=== PATIENT | male | born 1960 | race Caucasian/White ===

== ENCOUNTER 2016-11-20 05:46 | Emergency (ER) | payer OTHER ==
[~2016-11-20] VITALS: Ht 172.7 cm; Wt 122.5 kg
[~2016-11-20 05:46] MED LIST: ASPIRIN EC325 MG PO; IBUPROFEN400 MG PO; LOVASTATIN20 MG PO
[2016-11-20] MEDS ORDERED: LOSARTAN POTASS50 MG PO (05:54)
[2016-11-20] MEDS ORDERED: KEFLEX500 MG PO (06:14)
== END 2016-11-20 06:28 | disposition home or self-care (01) ==
LOC: ED 05:46
DX: N39.0 Urinary tract infection, site not specified (principal); I10 Essential (primary) hypertension; E78.00 Pure hypercholesterolemia, unspecified; Z87.891 Personal history of nicotine dependence; Z79.899 Other long term (current) drug therapy; Z79.82 Long term (current) use of aspirin
CPT/HCPCS: 81001; 87077; 87088; 87186; 99283

== ENCOUNTER 2017-04-25 05:40 | Day surgery (SDC) | payer OTHER ==
[~2017-04-25] VITALS: Ht 172.7 cm; Wt 121.6 kg
[~2017-04-25 05:40] MED LIST changes: +ATORVASTATIN CA40 MG PO; +KEFLEX500 MG PO; +LOSARTAN POTASS50 MG PO
--- NOTE | 2017-04-25 09:23 | NUR ---
04/25/17 0923 Kell Rajput 0920 - PT ARRIVED TO PACU. AWAKE AND RESPONDING APPROPIRALTY TO QUESTIONS.
--- NOTE | 2017-04-25 11:40 | NUR ---
HAS HAD JELLO WATER 300MLS AND PAIN MEDICINE. RATES PAIN AT 1/10. AMB HALLWAY AND VOIDS QS. READY TO GO HOME.
--- NOTE | 2017-04-26 10:44 | OR ---
[facility] [address] [facility] [place], [place] [address] Signed DATE OF OPERATION: 04/25/2017 SURGEON: Jany Villarreal MD PREOPERATIVE DIAGNOSES: 1. Recurrent urinary tract infections. 2. Right hydrocele. NAMES OF PROCEDURES: 1. Diagnostic cystourethroscopy. 2. Right hydrocelectomy. ANESTHESIA: General. ESTIMATED BLOOD LOSS: Minimal. COMPLICATIONS: None. SPECIMENS: Right-sided hydrocele sac, sent to pathology for evaluation. DRAINS: None. INDICATIONS FOR PROCEDURE: Mr. Myers is a very pleasant 56-year-old gentleman, who recently presented to clinic with complaints of progressively worsening right testicular swelling. He notices swelling many years ago, but over time his right testicle has gotten larger and is now getting in the way of basic activities of daily life. He also has a history of recurrent urinary tract infections and on initial visit, he mentioned that he had experienced a significant difficulty voiding after taking Sudafed. He has not experienced urinary tract infection in over 2 to 3 months. His UA today is normal. He presents today to undergo diagnostic cystoscopy for evaluation of his recurrent UTIs, along with definitive management of his right hydrocele in the form of right hydrocelectomy. OPERATIVE FINDINGS: Electronically Signed By: JANY VILLARREAL MD 04/26/17 1044 PATIENT NAME: LOYDA MYERS OPERATIVE REPORT DATE OF : 62 PHYSICIAN: JANY VILLARREAL MD REPORT #: [id number] REPORT IS CONFIDENTIAL AND NOT TO BE RELEASED WITHOUT AUTHORIZATION [facility] [address] [place] [place] [address] Signed 1. On cystoscopy, there was no evidence of any suspicious masses, lesions, or stones. Bilateral ureteral orifices are in their normal anatomic location. 2. Ureteroscopy reveals approximately 1 cm of distance from the bladder neck to the verumontanum. There was no significant lateral lobe hypertrophy noted on ureteroscopy. No obvious evidence of obstruction noted. 3. Examination of the external genitalia reveals a normal circumcised phallus with a small suprapubic fat pad. The testicles are descended bilaterally. The left testicle is normal and is without intratesticular masses. The right testicle is significantly enlarged to about the size of a softball. It is difficult to palpate the testicle on the right side due to the presence of a hydrocele. 4. The right hydrocele sac was drained and excised via the Jaboulay technique without difficulty. DESCRIPTION OF PROCEDURE: After informed consent was obtained, the patient was taken back to the operating room. He was transferred from the [facility] to the operating room table, where general anesthesia was induced. He was placed in the supine position and his genitalia prepped and draped in standard sterile fashion. A flexible cystoscope was passed through the patient's urethra and into the bladder under direct visualization. Plain endoscopic views of the bladder were then obtained. Please see the findings. I then slowly withdrew the scope to obtain adequate visualization of the prostatic urethra. Please see the findings. The scope was then fully withdrawn and that portion of the procedure was terminated. The patient's genitalia were then prepped and redraped in the standard sterile fashion. A marker was used to demarcate the median raphe. An approximately 6 cm transverse incision was made in the right hemiscrotum. I dissected down through the dartos tissue to the level of the tunica vaginalis. I then bluntly dissected the tunica vaginalis free from the dartos fascia. Metzenbaum scissors were used very carefully to help dissect the tunica vaginalis free from the surrounding tissue. I then delivered the entire testicle from the right hemiscrotum and released the gubernacular attachment from the right hemiscrotum. All the while hemostasis was achieved and maintained with judicious use of electrocautery. The hydrocele sac was then incised and approximately 300 mL of fluid was drained from the right hemiscrotum. The right hydrocele sac was then opened and approximately 3/4th of it was excised and placement in a specimen cup and sent to the lab for evaluation. I then wrapped the edges of this hydrocele sac around the spermatic cord in what is noted Jaboulay approach. Once the edges of this hydrocele sac were wrapped around the spermatic cord, I then closed these edges over the cord in a continuous running fashion using 3-0 Vicryl. I evaluated the dartos tissue within the right hemiscrotum and cauterized any areas of active bleeding. The right hemiscrotum was then thoroughly irrigated and the right testicle was placed back into the right hemiscrotum in appropriate orientation. I then reassessed the area for any residual bleeders, which were managed with electrocautery. The dartos tissue was then closed in a continuous running fashion using 3-0 Vicryl. The skin was closed in a Electronically Signed By: JANY VILLARREAL MD 04/26/17 1044 PATIENT NAME: LOYDA MYERS OPERATIVE REPORT DATE OF : 62 PHYSICIAN: JANY VILLARREAL MD REPORT #: [id number] REPORT IS CONFIDENTIAL AND NOT TO BE RELEASED WITHOUT AUTHORIZATION [address] [place], [place] [address] Signed continuous running fashion using 4-0 Vicryl. Once the incision was closed, it was cleaned and bacitracin ointment was applied along with a 4 x 4 and scrotal fluffs. The patient was then placed in a scrotal support. The procedure was then terminated. The patient tolerated the procedure well without any complication. He will now be transferred to the postanesthesia care unit in stable condition. DISPOSITION: I discussed the details of today's procedure with the patient's and answered all of her questions. He will be scheduled to return to clinic in approximately 2 weeks for a postoperative evaluation. He was told to take it easy for at least the next few days and avoid any significant heavy lifting or heavy physical activity. He will be sent home with Percocet 5/325 q.4 hours p.r.n. pain for a total of 30 dispensed along with Keflex 500 mg p.o. b.i.d. for a total of 7 days. He is to avoid aspirin and any other NSAIDs for at least the next 5 days. MD CHRISTINA Cox/BRITTANY /[id number] Electronically Signed By: JANY VILLARREAL MD 04/26/17 1044 PATIENT NAME: LOYDA MYERS OPERATIVE REPORT DATE OF : 62 PHYSICIAN: JANY VILLARREAL MD REPORT #: [id number] REPORT IS CONFIDENTIAL AND NOT TO BE RELEASED WITHOUT AUTHORIZATION
== END 2017-04-25 11:30 | disposition home or self-care (01) ==
LOC: OPS 05:40 → DS 05:40 → OPS 06:45
PROVIDERS: Urology
PROC: 0VB60ZZ Excision of Right Tunica Vaginalis, Open Approach (ICD-10-PCS; principal; 2017-04-25 06:45)
DX: N43.3 Hydrocele, unspecified (principal); N39.0 Urinary tract infection, site not specified; I10 Essential (primary) hypertension; E78.5 Hyperlipidemia, unspecified; Z98.52 Vasectomy status
CPT/HCPCS: 00910; J0330; J0696; J1100; J1885; J2250; J2405; J2704; J3010; J7120

== ENCOUNTER 2021-06-08 06:55 | Day surgery (SDC) | payer OTHER ==
--- NOTE | 2021-06-01 10:48 | NUR ---
pt covid positive in 10/2020. Pt was not test but the health department said he would be positive if he had three or more s/s which he did. Pt was SOB, fever, no engery and lost 20 pounds.
[~2021-06-08] VITALS: Ht 172.7 cm; Wt 127.3 kg
[2021-06-08] MEDS ORDERED: METFORMIN HCL500 M2 PO (07:12)
--- NOTE | 2021-06-08 12:28 | NUR ---
06/08/21 1228 Janelle Lan 1211 PT ARRIVED IN PACU SLEEPY WITH NO C/O'S. NO CBG NEEDED POST OP PER ANESTHESIA. 1227 SITTING UP IN BED TALKING WITH STAFF.
--- NOTE | 2021-06-08 12:59 | NUR ---
1240/PT ARRIVES TO UNIT VIA STRETCHER FROM PACU. PT IS ALERT AND ORIENTED. PT DENIES NAUSEA OR PAIN. VSS. DRESSING CLEAN DRY AND INTACT. SCD'S IN PLACE. PT GIVEN WATER BUT DENIED A SNACK AT THIS TIME. NO NEEDS VOICED AT THIS TIME. CALL LIGHT WITHIN.
--- NOTE | 2021-06-08 13:54 | NUR ---
1354/PT ALERT AND ORIENTED. PT DENIES PAIN OR NASUEA. VSS. SCD'S IN PLACE. DRESSING CLEAN DRY AND INTACT. PT VOICED HE WOULD LIKE TO TRY TO GO TO RESTROOM. PT WAS ASSISTED TO RESTROOM BY THIS STUDENT NURSE AND LENA MCGRATH. IV DC'D BY THIS STUDENT NURSE. TIP IN TACT. PT WILL GET DRESSED AND AWAIT FOR DISCHARGE. CALL LIGHT WITHIN REACH.
--- NOTE | 2021-06-08 14:31 | NUR ---
1420/PT WAS GIVEN DISCHARGE INSTRUCTIONS. PT VOICED UNDERSTANDING. NO NEEDS VOICED BY PT AT THIS TIME. PT WAS WAS TAKEN TO IN PERSONAL VEHICLE VIA WHEELCHAIR.
--- NOTE | 2021-06-08 17:36 | OR ---
[facility] [address] [place], [place] [address] Signed DATE OF OPERATION: 06/08/2021 SURGEON: Jany Villarreal MD PREOPERATIVE DIAGNOSIS: Left hydrocele. POSTOPERATIVE DIAGNOSES: Left hydrocele. NAME OF PROCEDURES: Left hydrocelectomy. ANESTHESIA: General; 10 mL of 0.25% Marcaine plain. ESTIMATED BLOOD LOSS: Minimal. COMPLICATIONS: None. SPECIMENS: Hydrocele sac sent to pathology for evaluation. DRAINS: None. INDICATIONS FOR PROCEDURE: Mr. Myers is a very pleasant 60-year-old gentleman, who is well-known to me. Approximately three years ago, he underwent a successful right hydrocelectomy for a mild to moderately sized right hydrocele. He recently presented to me again in clinic with complaints of a 1-2 year history of progressive enlargement of his left hemiscrotum. Physical examination confirmed the presence of a left hydrocele. After discussion of the risks and benefits of the procedure including risk of hemorrhage and recurrence of the hydrocele, the patient has elected to undergo left hydrocelectomy today. FINDINGS: 1. Visual inspection of the external genitalia reveals a glanular meatus with a circumcised phallus. No lesions present on the penile shaft. Testicles are descended Electronically Signed By: JANY VILLARREAL MD 06/08/21 1736 PATIENT NAME: LOYDA MYERS OPERATIVE REPORT DATE OF : 62 REPORT #: [id number] PHYSICIAN: JANY VILLARREAL MD PCP: TEE RUTHERFORD MD REPORT IS CONFIDENTIAL AND NOT TO BE RELEASED WITHOUT AUTHORIZATION [facility] [address] [place], [place] [address] Signed bilaterally. There is a scar in the right hemiscrotum consistent with his previous hydrocelectomy. There is [id number] swelling of the left hemiscrotum consistent with a hydrocele. 2. The patient's left hydrocele was repaired via excision of the left hydrocele sac and with eversion of the remaining edge of the hydrocele sac on the left side. The procedure was performed without any difficulty, however, it did require some extra dissection time in the beginning due to an exaggerated gubernacular attachment on the left side. Approximately 150 mL of straw-colored fluid was drained from the left hydrocele sac. DESCRIPTION OF PROCEDURE: After informed consent was obtained, the patient was taken back to the operating room. He was transferred from the [facility] to the operating room table, where general anesthesia was induced. He was placed in the supine position and his genitalia were prepped and draped in standard sterile fashion. Visual and manual inspection of the external genitalia was then performed. A marker was then used to guy the median raphae a as well as the planned transverse incision on the left hemiscrotum. Using a 15 blade, an approximately 6 cm incision was made in the left hemiscrotum at the same level of his previous right hemiscrotal incision. The incision was taken down with the knife to the level of the cremasteric fibers. Electrocautery was used to incise the cremasteric fibers with the use of a mosquito. Initially a lot of the dissection of the tunica from the dartos was performed via blunt dissection. However, when I got to the level of the gubernacular attachments, required a lot of careful sharp dissection using electrocautery and hemostats. After about half an hour, I was able to completely free the left testicle from the left hemiscrotum. I then was able to dissect down a few more layers until I made it to the tunica vaginalis. There was a decent amount of inguinal fat associated with the left testicle that was peeled off very gingerly from the left testicle. I did not appreciate any obvious inguinal hernia on this side. Once I peeled well the external layers from the cord, I was left with the tunica vaginalis. Allis clamps were used to secure the tunica layer and then I incised the layer and approximately 150 mL of straw-colored fluid was then drained from the compartment contained by the tunica vaginalis. I then very carefully excised a good deal of the hydrocele sac from the left testicle and distal cord. This was done very careful with electrocautery. All the while hemostasis is achieved and maintained with the electrocautery. The sac with associated fat was then placed in a specimen cup to be sent to pathology for evaluation. I then ran the edges of the residual sac in a continuous running fashion using 4-0 Vicryl. The remaining aspect of the tunica was everted during the process of running the hemostatic suture. After the suture was in place and the remaining tunica was everted, I evaluated the left hemiscrotum and dartos fascia to look for any additional bleeders. This area was then copiously irrigated with sterile water. I replaced the left testicle back into the left hemiscrotum in the appropriate orientation and the dartos fascia was then closed in a continuous running Electronically Signed By: JANY VILLARREAL MD 06/08/21 1736 PATIENT NAME: LOYDA MYERS OPERATIVE REPORT DATE OF : 62 REPORT #: [id number] PHYSICIAN: JANY VILLARREAL MD PCP: TEE RUTHERFORD MD REPORT IS CONFIDENTIAL AND NOT TO BE RELEASED WITHOUT AUTHORIZATION [facility] [address] [place], [place] [address] Signed fashion using 3-0 Vicryl. The skin was closed using vertical mattress sutures in a simple interrupted fashion again with 3-0 Vicryl. 10 mL of 0.25% Marcaine were then injected into the left hemiscrotal incision. The area was cleaned and dried and bacitracin along with fluffs and a scrotal support were then applied. No drain was placed. The procedure was then terminated. The patient tolerated the procedure well without any complication. He will now be transferred to the postanesthesia care unit in stable condition. DISPOSITION: I discussed the details of today's procedure with the patient and answered all of his questions. He will be sent home later today once he is fully awake from general anesthetic. He will be sent home with oxycodone 5 mg p.o. q.4-6 hours p.r.n. pain, dispense #30, along with cephalexin 750 mg p.o. b.i.d. for a total of 7 days. He has been scheduled to return to clinic on July 02 for his 1st postoperative evaluation. He understands that he will need to be off work for at least a month and to avoid any exertional activity for the next 4 to 6 weeks. MD CHRISTINA Cox/BRITTANY /[id number] Copies: ~ Electronically Signed By: JANY VILLARREAL MD 06/08/21 1736 PATIENT NAME: LOYDA MYERS OPERATIVE REPORT DATE OF : 62 REPORT #: [id number] PHYSICIAN: JANY VILLARREAL MD PCP: TEE RUTHERFORD MD REPORT IS CONFIDENTIAL AND NOT TO BE RELEASED WITHOUT AUTHORIZATION
--- NOTE | 2021-06-10 07:52 | PATH ---
[facility] [address] [place], [place] [address] Signed SPECIMEN(S): A LEFT HYDROCELE SAC SPECIMEN SOURCE: A. LEFT HYDROCELE SAC CLINICAL HISTORY: Pre: Left hydrocelectomy. FINAL PATHOLOGIC DIAGNOSIS: Hydrocele sac, left: - Hydrocele. TWK:caw:C2NR MICROSCOPIC EXAMINATION: Benign fibrovascular tissue is present. The connective tissue contains a luminal surface, compatible with a hydrocele. Atypical features are not seen. GROSS DESCRIPTION: The specimen, labeled "CV, left hydrocele sac," is received in formalin and consists of two irregular shaped fibromembranous tissue fragments that aggregate measure 7.0 x 4.3 x 0.5 cm. Sectioning through the specimen reveals pink-bean, focally congested tissue. [place] Operator sections are submitted in cassette (A1). JS (under the direct supervision of a pathologist) The Gross Description was prepared using a voice recognition system. The report was reviewed for accuracy; however, sound-alike word errors, addition and/or deletions may occur. If there is any question about this report, please contact Client Services. PERFORMING LABORATORY: The technical component was performed by [facility], [address] [place] [id number] (Recovery Analyst: Nadia Marshall MD; CLIA# [id number]). The professional interpretation was performed by [facility], [facility], [address] [place] [address]. Diagnostician: Berlin Pang MD Pathologist Electronically Signed 06/10/2021 PATIENT NAME: LOYDA FANG PATHOLOGY DATE OF : 62 REPORT #: [id number] PHYSICIAN: [facility] PCP: TEE RUTHERFORD MD REPORT IS CONFIDENTIAL AND NOT TO BE RELEASED WITHOUT AUTHORIZATION [address] [address] Signed Copies: ~ PATIENT NAME: LOYDA FANG PATHOLOGY DATE OF : 62 REPORT #: [id number] PHYSICIAN: [facility] PCP: TEE RUTHERFORD MD REPORT IS CONFIDENTIAL AND NOT TO BE RELEASED WITHOUT AUTHORIZATION
== END 2021-06-08 14:20 | disposition home or self-care (01) ==
LOC: DS 06:55
PROVIDERS: ATTEND Urology
PROC: 0VB70ZZ Excision of Left Tunica Vaginalis, Open Approach (ICD-10-PCS; principal; 2021-06-08 08:50)
DX: N43.3 Hydrocele, unspecified (principal); I10 Essential (primary) hypertension; Z87.891 Personal history of nicotine dependence; Z20.822 Contact with and (suspected) exposure to COVID-19
CPT/HCPCS: 00920; J0690; J1100; J1885; J2250; J2405; J2704; J2765; J3010; J7121

== ENCOUNTER 2021-10-12 07:50 | Day surgery (SDC) | payer OTHER ==
--- NOTE | 2021-09-20 11:11 | NUR ---
OR CASE FOR 09/21/[address] VILLARREAL. APPEMPTED TO CALL PT. LEFT MESSAGE FOR HIM TO CALL BACK. WILL TRY AGAIN.
--- NOTE | 2021-09-20 12:03 | NUR ---
SPOKE WITH PT TO NOTIFY OF CANCELED SURGERY. PT WILL CALL OFFICE ON TUESDAY TO RESHEDULE
[~2021-10-12] VITALS: Ht 172.7 cm; Wt 127.2 kg
[~2021-10-12 07:50] MED LIST changes: +METFORMIN HCL500 M2 PO
--- NOTE | 2021-10-12 14:33 | NUR ---
[facility] AWAKE WITH NO C/O'S. 1430 VISITING WITH STAFF. NO C/O'S.
--- NOTE | 2021-10-12 15:01 | NUR ---
6659 PATIENT BACK TO DAY SURGERY. PATIENT IS ALERT AND ORIENTED. BREAHTING EQUAL AND UNLABORED. OXYGEN SATRUATIONS ABOVE 95% ON ROOM AIR. PATIENT DENIES ANY PAIN OR NAUSEA. IVF INFUSING. PATIENT SCD'S APPLIED. CALL LIGHT WITHIN REACH. PATIENT EATING CRACKERS AND DRINKING WATER. NO FUTHER NEEDS AND NO QUESTIONS AT THIS TIME.
--- NOTE | 2021-10-12 15:25 | NUR ---
1520-PATINETS DRAIN INTACT AND MINIMAL DRAINAGE NOTED. 1525-PATIENT AMBULATES TO RESTROOM. GAIT STEADY AND TOLERATED WELL. PATIENT VOIDED 700ML. 1530-PATIENT GETTING DRESSED AND WILL WAIT TO BE DISCHARGED. DENIES PAIN AND NAUSEA.
--- NOTE | 2021-10-12 17:12 | NUR ---
1600-PATIENT IS SITTING UP WAITING TO BE DISCHARGED. DENIES PAIN AND NAUSEA. MINIMAL DRAINAGE FROM DRAIN. DRESSING IS CLEAN, DRY, AND INTACT. 0610-PROVIDED PATIENT WITH DISCHARGE INSTRUCTIONS. ALL QUESTIONS ANSWERED. PATIENT AMBULATES TO WHEELCHAIR. DENIES PAIN AND NAUSEA. RIDE PROVIDED TO FRONT OF HOSPITAL WHERE WAS WAITING WITH THE CAR.
--- NOTE | 2021-10-13 19:15 | OR ---
[facility] [address] [place], [place] [address] Signed DATE OF OPERATION: 10/12/2021 SURGEON: Jany Villarreal MD PREOPERATIVE DIAGNOSES: 1. Recurrent left hydrocele. 2. History of left hydrocelectomy using the Jaboulay technique. POSTOPERATIVE DIAGNOSES: 1. Recurrent left hydrocele. 2. History of left hydrocelectomy using the Jaboulay technique. 3. Recurrent left hydrocele secondary to development of a reactive pseudocapsule within the left hemiscrotum. NAMES OF PROCEDURES: 1. Repair of recurrent left hydrocele. 2. Left hemiscrotal exploration. 3. Intrascrotal instillation of 400 mg in 20 mL of doxycycline as a sclerotherapy agent. ANESTHESIA: General. ESTIMATED BLOOD LOSS: 20 mL. COMPLICATIONS: None. SPECIMENS: Inflammatory and reactive capsular tissue excised from the medial aspect of the left testicle and sent to pathology for evaluation. DRAINS: A quarter-inch Salisbury drain to gravity drainage. INDICATIONS FOR PROCEDURE: Mr. Myers is a very pleasant 60-year-old gentleman, who presented to me approximately 5 to 6 months ago with complaints of progressively worsening left hemiscrotal enlargement. He had undergone an ultrasound, which confirmed the presence of recurrent left hydrocele. This was confirmed not long after he underwent a routine left Electronically Signed By: JANY VILLARREAL MD 10/13/211914 PATIENT NAME: LOYDA MYERS OPERATIVE REPORT DATE OF : 62 REPORT #: [id number] PHYSICIAN: JANY VILLARREAL MD PCP: TEE RUTHERFORD MD REPORT IS CONFIDENTIAL AND NOT TO BE RELEASED WITHOUT AUTHORIZATION [facility] [address] [place], [place] [address] Signed hydrocelectomy using the Jaboulay technique. He reports that around 2 to 3 days after surgery, he began to experience progressive swelling of his left hemiscrotum. This swelling has remained fairly stable in size since his surgery. He initially managed the swelling conservatively with scrotal elevation and was also given antibiotics for treatment of possible cellulitis. He feels as though it is about the same as it was the prior to the first left hydrocelectomy. Otherwise, his left hemiscrotal incision is healed nicely. After being informed that his left hydrocele has recurred, likely due to fluid accumulation from inflammation and swelling, he has agreed to undergo repair of his recurrent left hydrocele. OPERATIVE FINDINGS: 1. Upon opening the left hemiscrotum, I encountered an extremely thick and well-capsulated cystic structure that appears to be quite similar in appearance to the tunica albuginea. However, I can tell there is a good deal of reactive tissue present in this area as the dartos is now very well adhered to the scrotal skin. I was able to dissect most of the cystic structure free from the left hemiscrotum, however, it remained very well attached to the left testicle. I drained approximately 50 mL of bloody fluid from the pseudocapsule. I once the capsule was fully opened, it revealed a very dense reactive inflammatory capsule as well as some septations with cystic structures within. Overall, when incised did not actively bleed, which did confirm a likely fibrinous inflammatory response secondary to his initial left hydrocelectomy. 2. The left testicle appears normal and healthy, and is in normal size. I chose not to dissect the pseudocapsule from the left testicle in order to avert any potential iatrogenic injury to the left testicle itself. Instead, the pseudocapsule was excised in toto, leaving the portion of the capsule attached to the left testicle proper. 3. The chhaya capsule was excised from the left testicle and then sent to pathology for evaluation. Since the edges of the chhaya capsule were not actively bleeding, the decision was made not to run any suture alongside the edge for hemostasis as this was not necessary. Once the left testicle was placed back into the left hemiscrotum in appropriate position, 400 mg in 20 mL of doxycycline was infused into the left hemiscrotum as a sclero-therapeutic agent. The doxycycline was instilled into the left hemiscrotum and remained there for a total of 7 minutes. A quarter-inch Salisbury drain was then placed at the most dependent portion of the left hemiscrotum and secured there with 0 nylon. DESCRIPTION OF PROCEDURE: After informed consent was obtained, the patient was taken back to the operating room. He was transferred from the [facility] to the operating room table, where general anesthesia was induced. He was placed in the supine position and his genitalia were prepped and draped in a standard sterile fashion. I was able to easily appreciate the well-healed scar from his previous left hydrocelectomy. Using a 15 blade, I created a new transverse incision approximately 1.5 cm inferior to his previous incision within the Electronically Signed By: JANY VILLARREAL MD 10/13/21 1915 PATIENT NAME: LOYDA MYERS OPERATIVE REPORT DATE OF : 62 REPORT #: [id number] PHYSICIAN: JANY VILLARREAL MD PCP: TEE RUTHERFORD MD REPORT IS CONFIDENTIAL AND NOT TO BE RELEASED WITHOUT AUTHORIZATION [facility] [address] [place] [address] [place], [place] [address] Signed left hemiscrotum. The incision measured around 6 cm in length and was again transverse in direction. I immediately noticed a lot of evidence of prior inflammation within the dartos layer of the left hemiscrotum. I continued my incision down to the capsular tissue. This was adhered very tightly to the dartos layer of the hemiscrotum. I then used both Bovie cautery and Metzenbaum scissors to very carefully dissect the capsule free from the dartos layer. Ultimately, I was able to dissect approximately 70% of the chhaya capsule just adjacent to the left testicle. I dissected this free and placed it in a specimen cup to be sent to pathology. The only portion of the capsule that remained behind was the capsule that was adherent to the left testicle proper. Two Allis clamps were placed on the chhaya capsule and a small incision was made in the capsule and approximately 50 mL of blood-colored fluid was drained from the capsule. I then incised the capsule using Metzenbaum scissors and was able to appreciate the wall of the chhaya capsule, which appeared to be very cystic in nature and again also very thick, consistent with a reactive inflammatory response to his previous left hydrocelectomy. I was able to incise approximately 70% of the capsule that had been located just medial to his left testicle. Again, this was placed in a specimen cup to be sent to pathology for evaluation. The capsule itself did not actively bleed, so no hemostatic stitch was required along the edge of the remaining capsule. A left hemiscrotum was then thoroughly irrigated and I looked for any potential bleeders within the dartos fascia as it appeared that the pseudocapsule had been highly adherent to the remaining portion of the dartos fascia. Once hemostasis was achieved, I placed the left testicle back within the left hemiscrotum. I created a very small incision at the base of the left hemiscrotum and placed a quarter-inch Imelda drain and secured the drain with 0 nylon. I then instilled the doxycycline solution into the left hemiscrotum, where it remained for a total of 7 minutes. We then passively drained the solution from the left hemiscrotum. I then closed what was remaining of the dartos fascia in a continuous running fashion using 3-0 Vicryl. I then closed the second layer, which was scrotal skin, in an interrupted fashion using vertical mattress sutures with 3-0 Vicryl. The incision was then fully closed and it was cleaned and dried, and then Dermabond was applied along the edge of the incision. This was followed by scrotal fluffs and a scrotal support. An extra absorbent sponge was placed near the Salisbury drain. The procedure was then terminated. The patient tolerated the procedure well without any complication. He will now be transferred to the postanesthesia care unit in stable condition. DISPOSITION: I discussed the details of today's procedure with the patient's and answered all of her questions. I did explain to her that we did instill a sclerosing agent within the left hemiscrotum for a total of 7 minutes, which was then drained from the hemiscrotum. A Salisbury drain was also placed that will remain there for a total of 4 days until this , at which point it will be removed by me in the clinic. He will be sent home today with cephalexin 500 mg p.o. t.i.d. for a total of 7 days. He informed me today Electronically Signed By: JANY VILLARREAL MD 10/13/211914 PATIENT NAME: LOYDA MYERS OPERATIVE REPORT DATE OF : 62 REPORT #: [id number] PHYSICIAN: JANY VILLARREAL MD PCP: TEE RUTHERFORD MD REPORT IS CONFIDENTIAL AND NOT TO BE RELEASED WITHOUT AUTHORIZATION [facility] [address] [place] [address] Signed that he already has enough oxycodone 5 mg at home to be taken q.6 hours and as needed for pain. He will be scheduled to return to clinic in approximately 3 weeks for his first postoperative visit. MD CHRISTINA Cox/BRITTANY /[id number] Copies: ~ Electronically Signed By: JANY VILLARREAL MD 10/13/21 1915 PATIENT NAME: LOYDA MYERS OPERATIVE REPORT DATE OF : 62 REPORT #: [id number] PHYSICIAN: JANY VILLARREAL MD PCP: TEE RUTHERFORD MD REPORT IS CONFIDENTIAL AND NOT TO BE RELEASED WITHOUT AUTHORIZATION
--- NOTE | 2021-10-14 12:38 | PATH ---
[facility] [address] [place], [place] [address] Signed SPECIMEN(S): A REACTIVE PSEUDO CAP LEFT HYDROCELE SPECIMEN SOURCE: A. REACTIVE PSEUDO CAP LEFT HYDROCELE CLINICAL HISTORY: Recurrent left hydrocele. FINAL PATHOLOGIC DIAGNOSIS: Reactive pseudo capsule, left hydrocele, excision: - Fibromuscular connective tissue with dense sclerosis/fibrosis and scattered chronic inflammation. - Foreign body type giant cell reaction associated with polarizable foreign material. NAL:cml:C2NR MICROSCOPIC EXAMINATION: Histologic sections of all submitted blocks are examined by light microscopy. These findings, together with the gross examination, support the pathologic diagnosis. GROSS DESCRIPTION: The specimen, labeled "CV, A," and designated on the requisition "reactive pseudocapsule s/p left hydrocele, recurrent left hydrocele," is received in formalin and consists of two fragmented pink-bean to hemorrhagic membranous pieces of soft tissue (6.4 x 3.0 x 1.4 cm and 7.0 x 5.0 x 1.7 cm). The tissue is sectioned to reveal pink to brown-bean soft cut surfaces. Leather Roller sections are submitted in cassettes A1-A2. AC (under the direct supervision of a pathologist) The Gross Description was prepared using a voice recognition system. The report was reviewed for accuracy; however, sound-alike word errors, addition and/or deletions may occur. If there is any question about this report, please contact Client Services. PERFORMING LABORATORY: The technical component was performed by [facility], [address] [place] [id number] (CLIA# [id number]). [facility], [address] [address] (CLIA# [id number]). PATIENT NAME: LOYDA FANG PATHOLOGY DATE OF : 62 REPORT #: [id number] PHYSICIAN: [facility] PCP: TEE RUTHERFORD MD REPORT IS CONFIDENTIAL AND NOT TO BE RELEASED WITHOUT AUTHORIZATION [address] [place], [place] [address] Signed Diagnostician: Delia Robins MD Pathologist Electronically Signed 10/14/2021 Copies: ~ PATIENT NAME: LOYDA FANG PATHOLOGY DATE OF : 62 REPORT #: [id number] PHYSICIAN: [facility] PCP: TEE RUTHERFORD MD REPORT IS CONFIDENTIAL AND NOT TO BE RELEASED WITHOUT AUTHORIZATION
== END 2021-10-12 16:10 | disposition home or self-care (01) ==
LOC: DS 07:50
PROVIDERS: ATTEND Urology
PROC: 0VB70ZZ Excision of Left Tunica Vaginalis, Open Approach (ICD-10-PCS; principal; 2021-10-12 10:15)
DX: N43.2 Other hydrocele (principal); I10 Essential (primary) hypertension; E78.5 Hyperlipidemia, unspecified
CPT/HCPCS: 00830; J0131; J0690; J1100; J1885; J2250; J2405; J2704; J2765; J3010; J7121

== ENCOUNTER 2022-02-27 10:22 | Emergency (ER) | payer OTHER ==
[~2022-02-27] VITALS: Ht 172.7 cm; Wt 127.0 kg
== END 2022-02-27 11:32 | disposition home or self-care (01) ==
LOC: ED 10:22
DX: S61.211A Laceration without foreign body of left index finger without damage to nail, initial encounter (principal); I10 Essential (primary) hypertension; E78.00 Pure hypercholesterolemia, unspecified; Z87.891 Personal history of nicotine dependence; Z79.899 Other long term (current) drug therapy; Z79.84 Long term (current) use of oral hypoglycemic drugs; W29.3XXA Contact with powered garden and outdoor hand tools and machinery, initial encounter
CPT/HCPCS: 99282

== ENCOUNTER 2022-08-20 06:25 | Day surgery (SDC) | payer OTHER ==
[2022-08-17 11:38] VITALS: BP 151/88
[~2022-08-20] VITALS: Ht 172.7 cm; Wt 127.3 kg
[2022-08-20 06:36] VITALS: BP 161/90
[2022-08-20] MEDS ORDERED: HYDROCODON-ACE1 EA10 PO (08:08)
--- NOTE | 2022-08-20 08:15 | NUR ---
08/20/22 0815 Leilani Jain 0808 PT TO PACU AWAKE AND ALERT DENIES PAIN AND NAUSE. 0814 PT TAKING SIPS OF WATER TOLERATES WELL.
[2022-08-20 08:28] VITALS: BP 139/87
--- NOTE | 2022-08-20 12:24 | NUR ---
PT ALERT, ORIENTED AND WILL HAVE FAMILY HERE AT NE. PT FEELS INFORMED, SEEMS READY TO GET USE BACK OF HIS HAND. PT REQUESTED PRAYER, GAVE BLESSING
--- NOTE | 2022-08-20 17:12 | OR ---
[facility] [address] [place], [place] [address] Signed DATE OF OPERATION: 08/20/2022 SURGEON: Gracy Jain MD PREOPERATIVE DIAGNOSIS: Carpal tunnel syndrome, left. POSTOPERATIVE DIAGNOSIS: Carpal tunnel syndrome, left. PROCEDURE PERFORMED: Left carpal tunnel release. CRYPTOLOGIC SUPPORT SPECIALIST: None. ANESTHESIA: Pita block. TOURNIQUET TIME: 20 minutes. BRIEF HISTORY: Rosalina is a 61-year-old gentleman with pain and numbness in his hand. Nerve conduction studies were consistent with carpal tunnel. Risks and benefits of operative treatment were discussed with him and he elected to proceed. PROCEDURE IN DETAIL: Once consent was obtained, he was taken to the operating room. After adequate anesthesia, he was placed on the operating [facility] and hand table was brought in. The arm was prepped and draped in a standard sterile fashion. The carpal tunnel was approached through a 1.5 cm incision. This was carried through the skin and subcutaneous tissue. Remnants of the palmaris longus were identified, retracted and protected. Transverse carpal ligament was identified under loupe magnification. It was then dissected free of overlying soft tissue distally and proximally. It was then released using tenotomy scissors proximally for a cm and distally to the distal extent of the ligament itself. This was palpated using a [place] and found to be completely released. The wound was copiously irrigated with normal saline, closed with 3-0 nylon and infiltrated with 8 mL of 0.25% Marcaine plain. Wound was then dressed with bacitracin, Adaptic, 4 x 8s and Electronically Signed By: GRACY JAIN MD 08/20/22 1712 PATIENT NAME: ROSALINA FANG OPERATIVE REPORT DATE OF : 62 REPORT #: [id number] PHYSICIAN: GRACY JAIN MD PCP: TEE RUTHERFORD MD REPORT IS CONFIDENTIAL AND NOT TO BE RELEASED WITHOUT AUTHORIZATION [facility] [address] [place], [place] [address] Signed gauze. He tolerated the procedure well. All sponge, needle, and instrument counts were correct. Gracy Jain MD BA/BRIANL /[id number] Copies: ~ Electronically Signed By: GRACY JAIN MD 08/20/22 1712 PATIENT NAME: ROSALINA FANG OPERATIVE REPORT DATE OF : 62 REPORT #: [id number] PHYSICIAN: GRACY JAIN MD PCP: TEE RUTHERFORD MD REPORT IS CONFIDENTIAL AND NOT TO BE RELEASED WITHOUT AUTHORIZATION
--- NOTE | 2022-08-20 18:45 | EKG ---
[facility] [address] [facility] [place], [place] [address] Signed Normal sinus rhythm Normal ECG When compared with ECG of 01-JUN-2021 10:41, No significant change was found Confirmed by YUAN VENTURA MD ([id number]) on 08/20/2022 6:45:47 PM Electronically Signed By: YUAN VENTURA MD 08/20/22 1845 PATIENT NAME: LEONCIOLOYDA AMINNN Electrocardiogram DATE OF : 62 PHYSICIAN: YUAN VENTURA MD REPORT #: [id number] REPORT IS CONFIDENTIAL AND NOT TO BE RELEASED WITHOUT AUTHORIZATION
== END 2022-08-20 08:35 | disposition home or self-care (01) ==
LOC: DS 06:25
PROVIDERS: ATTEND Specialist
PROC: 01N50ZZ Release Median Nerve, Open Approach (ICD-10-PCS; principal; 2022-08-20 08:15)
DX: G56.02 Carpal tunnel syndrome, left upper limb (principal); E78.00 Pure hypercholesterolemia, unspecified; I10 Essential (primary) hypertension; E11.9 Type 2 diabetes mellitus without complications; Z79.84 Long term (current) use of oral hypoglycemic drugs
CPT/HCPCS: 93005; 93010; J0690; J2250; J2704; J7121